=== PATIENT | female | born 1965 | race Caucasian/White ===

== ENCOUNTER 2016-08-15 12:04 | Emergency (ER) | payer OTHER, MEDICARE ==
[~2016-08-15] VITALS: Ht 170.2 cm; Wt 78.9 kg
[~2016-08-15 12:04] MED LIST: DEPAKOTE500 M1 PO; FLEXERIL10 MG PO; FOLIC ACID1 M1 PO; LAMICTAL100 M2 PO; LATANOPROST2.5 ML OPH; MOTRIN800 MG PO; NAPROSYN 500 M500 MG PO; PERCOCET 325 MG1 TA2 PO; PERCOCET 5-3251 EACH PO; POLYMYXIN B-TMP10 ML OPH; POLYTRIM O200 GTT/BO OPH; REFRESH OPTIVE15 M1 OPH; TEGRETOL XR400 MG PO
[2016-08-15 12:11] VITALS: BP 126/85
--- NOTE | 2016-08-15 12:43 | ED GENERAL ADULT ---
History of Present Illness General Chief Complaint: Trunk Injury Stated Complaint: PT STATES "I BROKE MY RIBS LEANING OVER" Source: patient Exam Limitations: no limitations Vital Signs & Intake/Output Vital Signs & Intake/Output Vital Signs Date Time Temp Pulse Resp B/P Pulse O2 O2 Flow FiO2 Ox Delivery Rate 08/15 1211 97.2 89 18 126/85 99 Room Air Allergies Coded Allergies: NO KNOWN ALLERGIES (07/28/14) Reconcile Medications Carbamazepine (Tegretol XR) 400 MG TAB.ER.12H 1 TAB PO BID UNKNOWN (Reported) Carboxymethylcellulos/Glycerin (Refresh Optive Eye Drops) 15 ML DROPS 1 GTT OPH 4 TIMES/DAY EYE (Reported) Divalproex Sodium (Depakote) 500 MG TABLET.DR 2 TAB PO BID UNKNOWN (Reported) Folic Acid 1 MG TABLET 1 TAB PO DAILY SUPPLEMENT (Reported) Lamotrigine (Lamictal) 100 MG TABLET 1 TAB PO BID UNKNOWN (Reported) Latanoprost 2.5 ML DROPS 1 GTT OPH QPM EYE (Reported) Oxycodone HCl/Acetaminophen (Percocet 5-325 MG Tablet) 1 EACH TABLET 1-2 TAB PO Q6P PRN PAIN Polymyxin B Sulf/Trimethoprim (Polymyxin B-Tmp Eye Drops) 10 ML DROPS 1 GTT OPH 4 TIMES/DAY CONJUNCTIVITIS Triage Note: 51 Y/O FEMALE C/O PAIN TO L SIDED RIBCAGE, "I WAS PICKING SOMETHING UP AND I BENT AND TURNED AT THE SAME TIME AND FELT A SNAP". PT REPORTS PAIN TO L RIBCAGE SINCE; WORSENING WITH COUGHING, SNEEZING OR ANY MOVEMENTS. STATES THIS HAPPENED 2 DAYS AGO. DENIES OTHER COMPLAINTS. XRAY ORDERED. Triage Nurses Notes Reviewed? yes Onset: Abrupt Duration: day(s): Timing: recent history HPI: 08/15/16 1:10 PM This is a maxwell 51-year-old female presents to the emergency department complaining of left-sided rib pain. The patient states approximately 5 days ago she bent over to grab something and felt a pop and sudden pain in the left side of her ribs. The onset of the symptoms were abrupt, the duration has been approximately one week, the severity was significant as her symptoms required to come to the emergency department. She denies shortness of breath or other complaints. She says she does have a history of a disc herniation in her low back. On physical exam she does have left sided lower rib tenderness. Lungs are clear. Left upper quadrant of the abdomen is completely nontender. There is no ecchymosis. Lungs are clear bilaterally. Left rib series is negative for fracture. Past History Travel History Traveled to [place] past 21 day No Medical History Any Pertinent Medical History? see below for history Neurological: EPILEPSY EENT: glaucoma, conjunctivitis Cardiovascular: NONE Respiratory: NONE Gastrointestinal: NONE Hepatic: NONE Renal: NONE Musculoskeletal: NONE Psychiatric: NONE Endocrine: NONE Blood Disorders: NONE Cancer(s): NONE CHIEF ARCHITECT/Reproductive: NONE Surgical History Surgical History: RIGHT KNEE Psychosocial History Who do you live with Patient/Self What is your primary language Romanian Tobacco Use: Current Daily Use Daily Tobacco Use Amount/Type: => 5 Cigarettes daily Family History Hx Contributory? No Review of Systems Review of Systems Constitutional: Denies: fever. EENTM: Denies: visual changes. Respiratory: Denies: cough, short of breath. Cardiovascular: Reports: see HPI. GI: Denies: abdominal pain. Genitourinary: Reports: no symptoms. Musculoskeletal: Reports: see HPI. Skin: Denies: rash. Neurological/Psychological: Reports: no symptoms. Hematologic/Endocrine: Reports: no symptoms. Physical Exam Physical Exam General Appearance: alert, awake, anxious, mild distress Head: atraumatic, normal appearance Eyes: Bilateral: normal appearance, PERRL. Ears, Nose, Throat: normal pharynx, normal ENT inspection Neck: normal inspection, supple Respiratory: normal breath sounds, no respiratory distress, LEFT LATERAL HEMITHORAX TENDERNESS Cardiovascular: regular rate/rhythm Peripheral Pulses: 4+ radial (R), 4+ radial (L) Gastrointestinal: non-tender Back: decreased range of motion Extremities: normal inspection, no edema Neurologic/Psych: no motor/sensory deficits, awake, alert, oriented x 3 Skin: intact, normal color, warm/dry Core Measures ACS in differential dx? No CVA/TIA Diagnosis: No Severe Sepsis Present: No Septic Shock Present: No Progress Differential Diagnoses I considered the following diagnoses in my evaluation of the patient: [Rib fracture, pneumothorax, shingles, intra-abdominal injury] Plan of Care: Orders Procedure Date/time Status XRY-RIBS UNILATERAL-LEFT 08/15 1213 Active Initial ED EKG: none Departure Departure Disposition: HOME OR SELF CARE Condition: Stable Clinical Impression Primary Impression: Rib injury Referrals: DEBORAH LYN,CHUCKY Siddiqui (PCP/Family) Departure Forms: Customer Survey General Discharge Information Comments PATIENT: CROW DARBY PRESENT AGE: 51 PATIENT ACCOUNT NO: [id number] : 67 LOCATION: [facility] ORDERING PHYSICIAN: COSMO VASQUEZ DO SERVICE DATE: 08/15/16-1212 EXAM TYPE: RAD - XRY-RIBS UNILATERAL-LEFT EXAMINATION: XR RIBS, LEFT CLINICAL INFORMATION: Pain in left rib cage after bending and lifting object. COMPARISON: None TECHNIQUE: Left ribs, 4 views. FINDINGS: Lungs are symmetrically expanded and clear. No pulmonary consolidation, pneumothorax or pleural effusion. Cardiac silhouette is normal in size. The mediastinal and hilar contours are normal. The left-sided ribs appear intact. No evidence of an acute, displaced rib fracture. IMPRESSION: 1. Lungs are normal. No acute cardiopulmonary abnormality. 2. No evidence of left rib fracture. DICTATED BY: BETO SOLO MD DATE/TIME DICTATED:08/15/161257 POLICE COMMUNICATIONS DISPATCHER:LINSEY DATE/TIME TRANSCRIBED:08/15/161257 CONFIDENTIAL, DO NOT COPY WITHOUT APPROPRIATE AUTHORIZATION. <Electronically signed in Other Vendor System> SIGNED BY: BETO SOLO MD 08/15/16 1303 Critical Care Note Critical Care Note Critical Care Time: non-applicable
--- NOTE | 2016-08-15 13:03 | RADIOLOGY REPORT ---
EXAMINATION: XR RIBS, LEFT CLINICAL INFORMATION: Pain in left rib cage after bending and lifting object. COMPARISON: None TECHNIQUE: Left ribs, 4 views. FINDINGS: Lungs are symmetrically expanded and clear. No pulmonary consolidation, pneumothorax or pleural effusion. Cardiac silhouette is normal in size. The mediastinal and hilar contours are normal. The left-sided ribs appear intact. No evidence of an acute, displaced rib fracture. IMPRESSION: 1. Lungs are normal. No acute cardiopulmonary abnormality. 2. No evidence of left rib fracture.
[2016-11-13] MEDS ORDERED: PERCOCET 7.5-31 EACH PO (08:51)
== END 2016-08-15 13:30 ==
LOC: ERH 12:04
DX: S29.9XXA Unspecified injury of thorax, initial encounter (principal); X58.XXXA Exposure to other specified factors, initial encounter
CPT/HCPCS: 71100-LT

== ENCOUNTER → 2016-11-15 | Day surgery (SDC) | payer OTHER, MEDICARE ==
[~2016-11-15] VITALS: Ht 172.7 cm; Wt 72.6 kg
[~2016-11-15] MED LIST changes: +PERCOCET 7.5-31 EACH PO
--- NOTE | 2016-11-29 13:23 | Operative Report ---
Operative/Inv Procedure Report Surgery Date: 11/15/16 Name of Procedure: Incisional biopsy of left vulva Pre-Operative Diagnosis: Vulva lesion Post-Operative Diagnosis: Same Estimated Blood Loss: scant Surgeon/Shuttle Repairer: JANETT CHRISTINA MD Anesthesia: moderate sedation, block Operative/Procedure Note Note: Procedure note patient was taken the operating room placed supine position after adequate anesthesia patient placed in dorsolithotomy position the vagina from dorsal fashion examination under anesthesia was performed patient tolerated that well at this point the Marcaine was placed underneath the lesion the lesion was removed using a knife on the skin edges were reapproximated using 30 interrupteds on at the end of the case hemostasis was apparent all bacitracin was applied to the incision patient called that well she was awakened from anesthesia and transferred recovery room awake alert with counts correct Findings: 2 cm common wart on the left vulva no lymphadenopathy
== END ==
LOC: STS 04:03
DX: B07.8 Other viral warts (principal); G40.909 Epilepsy, unspecified, not intractable, without status epilepticus; F17.200 Nicotine dependence, unspecified, uncomplicated
CPT/HCPCS: 88305; J2250